=== PATIENT | female | born 1990 | race Caucasian/White ===

== ENCOUNTER 2018-01-01 07:12 | Emergency (ER) | payer OTHER ==
[2018-01-01] MEDS ORDERED: Triamcinolone Acetonide* 40 MG/ML 1 ML VIAL IM ONE (07:46)
--- NOTE | 2018-01-01 07:47 | UC ---
Skin Complaint HPI - HPI Summary HPI Summary: 27 yo female with itchy rash x days greatest density on knees/forearms and abd no noew meds no new soaps or detergents - History of Current Complaint Chief Complaint: UCSkin Time Seen by Provider: 01/01/18 07:23 Stated Complaint: RASH Hx Obtained From: Patient Hx Last Menstrual Period: IUD Onset/Duration: Gradual Onset, Lasting Days Timing: Constant Onset Severity: Mild Current Severity: Mild Pain Intensity: 0 Pain Scale Used: 0-10 Numeric Location: Other - see HPI Character: Pruritus, Redness, Raised Aggravating Factor(s): Touch Alleviating Factor(s): Cold, OTC Meds Associated Signs & Symptoms: Positive: Rash - Allergy/Home Medications Allergies/Adverse Reactions: Allergies Allergy/AdvReac Type Severity Reaction Status Date / Time iodine Allergy Rash Verified 01/01/18 07:30 chloroprep Allergy Rash Uncoded 01/01/18 07:30 Home Medications: Home Medications Hydrocortisone 0.5% CM(NF) [Hydrocortisone 0.5% CREAM(NF)] 1 applic .SEE ORDER DAILY PRN 01/01/18 [History Confirmed 01/01/18] diphenhydrAMINE HCl [Benadryl Allergy 25 MG CAP] 25 mg PO DAILY PRN 01/01/18 [ History Confirmed 01/01/18] Review of Systems Constitutional: Negative Skin: Rash Eyes: Negative ENT: Negative Respiratory: Negative Cardiovascular: Negative Gastrointestinal: Negative Genitourinary: Negative Motor: Negative Neurovascular: Negative Musculoskeletal: Negative Neurological: Negative Psychological: Negative Is Patient Immunocompromised?: No All Other Systems Reviewed And Are Negative: Yes PMH/Surg Hx/FS Hx/Imm Hx Previously Healthy: Yes - Surgical History Surgical History: Yes Surgery Procedure, Year, and Place: laparoscopy - Family History Known Family History: Positive: Hypertension, Diabetes - Social History Alcohol Use: Rare Substance Use Type: None Smoking Status (MU): Never Smoked Tobacco Physical Exam Triage Information Reviewed: Yes Appearance: Well-Appearing, No Pain Distress, Well-Nourished Vital Signs: Initial Vital Signs Temp 98.1 F 01/01/18 07:25 Pulse 92 01/01/18 07:25 Resp 16 01/01/18 07:25 BP 123/78 01/01/18 07:25 Pulse Ox 98 01/01/18 07:25 Vital Signs Reviewed: Yes Eyes: Positive: Conjunctiva Clear ENT: Positive: Hearing grossly normal, Uvula midline. Negative: Nasal congestion, Nasal drainage, Tonsillar swelling, Tonsillar exudate, Trismus, Muffled voice, Hoarse voice Dental Exam: Normal Neck: Positive: Supple, Nontender, No Lymphadenopathy Respiratory: Positive: Lungs clear, Normal breath sounds, No respiratory distress Cardiovascular: Positive: RRR, No Murmur Abdomen Description: Positive: Soft Musculoskeletal: Positive: ROM Intact, No Edema Neurological Exam: Normal Psychological Exam: Normal Skin Exam: Other - fine red papules/many in linear array, no vesicles/scab/ burrows Skin: Positive: rashes Course/Dx - Course Course Of Treatment: given 40MG kenalog IM here. given oral prednisone option which she declines - Diagnoses Provider Diagnoses: contact dermatitis Discharge - Sign-Out/Discharge Documenting (check all that apply): Discharge/Admit/Transfer - Discharge Plan Condition: Stable Disposition: HOME Patient Education Materials: Contact Dermatitis (ED) Referrals: Camryn Teixeira [Primary Care Provider] - 5 Days (if not improved) Additional Instructions: you may take oral benadryl if needed for itching - Billing Disposition and Condition Condition: STABLE Disposition: HOME
== END 2018-01-01 08:20 | disposition home or self-care (01) ==
LOC: UCEAST 07:12
DX: L25.9 Unspecified contact dermatitis, unspecified cause (principal)
CPT/HCPCS: 96372; 99202; G0463; J3301

== ENCOUNTER 2018-03-21 11:13 | Emergency (ER) | payer OTHER ==
[2018-03-21 11:20] VITALS: BP 111/70
--- NOTE | 2018-03-21 11:28 | UC ---
Throat Pain/Nasal Deon HPI - HPI Summary HPI Summary: 27 y/o female presents to the urgent care c/o sinus and chest congestion for the past 3 days. Pt reports nasal discharge is clear associated w/ mild sore throat and b/l ear pressure. Cough is dry. Pain w/ swallowing is 2/10. She has taking Mucinex to alleviate symptoms. Pt denies fever, SOB, wheezing, chest pain , abdominal pain, N/V/D - History of Current Complaint Chief Complaint: UCRespiratory Stated Complaint: SINUS COMPLAINT Time Seen by Provider: 03/21/18 11:26 Hx Obtained From: Patient Hx Last Menstrual Period: pt has an IUD and states not getting a menses ?: No Onset/Duration: Gradual Onset, Lasting Days - 3 days, Still Present, Worse Since - last night Severity: Mild Pain Intensity: 2 - sore throat Pain Scale Used: 0-10 Numeric Cough: Nonproductive Associated Signs & Symptoms: Positive: Dysphagia, Sinus Discomfort, Nasal Discharge Related History: Seasonal Allergies - Epiglottits Risk Factors Epiglottis Risk Factors: Negative - Allergies/Home Medications Allergies/Adverse Reactions: Allergies Allergy/AdvReac Type Severity Reaction Status Date / Time iodine AdvReac Rash Verified 03/21/18 11:20 chloroprep AdvReac Rash Uncoded 03/21/18 11:20 PMH/Surg Hx/FS Hx/Imm Hx Previously Healthy: Yes - Pt denies PMHX - Surgical History Surgical History: Yes Surgery Procedure, Year, and Place: L ureter repair - Family History Known Family History: Positive: Hypertension, Diabetes - Social History Occupation: Employed Full-time Lives: With Family Alcohol Use: Occasionally Substance Use Type: None Smoking Status (MU): Never Smoked Tobacco Review of Systems Constitutional: Negative Skin: Negative Eyes: Negative ENT: Sore Throat, Ear Ache - B/L ear pressure, Nasal Discharge, Sinus Congestion , Sinus Pain/Tenderness Respiratory: Cough - dry Cardiovascular: Negative Gastrointestinal: Negative Genitourinary: Negative Motor: Negative Neurovascular: Negative Musculoskeletal: Negative Neurological: Headache - mild Psychological: Negative Is Patient Immunocompromised?: No All Other Systems Reviewed And Are Negative: Yes Physical Exam - Summary Physical Exam Summary: VITAL SIGNS: Reviewed. GENERAL: Patient is a well developed and nourished female who is sitting comfortable in the examining table. Patient is not in any acute respiratory distress. HEAD AND FACE: No signs of trauma. No ecchymosis, hematomas or skull depressions. No sinus tenderness. EYES: PERRLA, EOMI x 2, No injected conjunctiva, no nystagmus. No photophobia. EARS: Hearing grossly intact. Ear canals and tympanic membranes are within normal limits. Nose: edematous and erythematous nasal mucosa w/ clear nasal discharge. MOUTH: Positive no erythema, no tonsillar enlargement. Uvula in midline. NECK: Supple, trachea is midline, Positive anterior cervical lymphadenopathy, no JVD, no carotid bruit, no c-spine tenderness, neck with full ROM. No meningeal signs, no Kernig's or brudzinskis signs. CHEST: Symmetric, no tenderness at palpation LUNGS: Clear to auscultation bilaterally. No wheezing or crackles. CVS: Regular rate and rhythm, S1 and S2 present, no murmurs or gallops appreciated. ABDOMEN: Soft, non-tender. No signs of distention. No rebound no guarding, and no masses palpated. Bowel sounds are normal. EXTREMITIES: FROM in all major joints, no edema, no cyanosis or clubbing. NEURO: Alert and oriented x 3. No acute neurological deficits. Speech is normal and follows commands. Triage Information Reviewed: Yes Vital Signs: Initial Vital Signs Temp 98.2 F 03/21/18 11:17 Pulse 66 03/21/18 11:17 Resp 16 03/21/18 11:17 BP 111/70 03/21/18 11:17 Pulse Ox 100 03/21/18 11:17 Throat Pain/Nasal Course/Dx - Course Course Of Treatment: 27 y/o female presents to the urgent care c/o sinus and chest congestion for the past 3 days. Pt reports nasal discharge is clear associated w/ mild sore throat and b/l ear pressure. Cough is dry. Pain w/ swallowing is 2/10. She has taking Mucinex to alleviate symptoms. Pt denies fever, SOB, wheezing, chest pain, abdominal pain, N/V/D. Hx obtained. Pt w/ an upper respirtory infection on examination. Pt advised to rest, increase fluid intake. Pt Rx Flonase nasal spray and Loratadine PO to clear sinus congestion. Also to continue w/ Mucinex PO. Pt advised if not improvement of symptoms to return to the urgent care or f/u w/ her PCP for further management. Pt understood and agreed w/ plan of care. - Differential Dx/Diagnosis Differential Diagnosis/HQI/PQRI: Laryngitis, Mononucleosis, Otitis Media, Pharyngitis, Sinusitis, Tonsillitis, URI Provider Diagnoses: 1- Upper respiratory infection Discharge - Sign-Out/Discharge Documenting (check all that apply): Patient Departure - d/c home - Discharge Plan Condition: Stable Disposition: HOME Prescriptions: Fluticasone NASAL SPRAY 50MCG* [Flonase NASAL SPRAY 50MCG*] 2 spray BOTH NARES DAILY #1 btl Loratadine/Pseudoephedrine [Loratadine-D 12 Hour Tablet] 1 each PO BID #20 [id number] Patient Education Materials: Upper Respiratory Infection (ED) Forms: *Work Release Referrals: Camryn Teixeira [Primary Care Provider] - 3 Days Additional Instructions: 1- Please increase fluid intake, eat well and rest. 2-Use Flonase as directed to help drain fluid. Take Loratadine PO as directed to alleviate symptoms 3-Take Ibuprofen or Acetaminophen for fever and pain. 4-Return to the clinic or call your PCP if symptoms do not improve. - Billing Disposition and Condition Condition: STABLE Disposition: Home
== END 2018-03-21 11:45 | disposition home or self-care (01) ==
LOC: UCEAST 11:13
DX: J06.9 Acute upper respiratory infection, unspecified (principal); Z82.49 Family history of ischemic heart disease and other diseases of the circulatory system; Z83.3 Family history of diabetes mellitus
CPT/HCPCS: 99212; G0463

== ENCOUNTER 2018-04-11 10:37 | Emergency (ER) | payer MEDICAID, OTHER ==
[2018-04-11 10:50] VITALS: BP 119/82
--- NOTE | 2018-04-11 11:21 | UC ---
Lower Extremity/Ankle HPI - HPI Summary HPI Summary: This pt is a 27 y/o female presenting to [facility] c/o right ankle pain since . Pt denies fall or trauma to right ankle. She states she first noticed pain after work 3 days ago when she tried to put on her shoes to go out for dinner. Denies fever, chills, redness, knee pain. Her pain is aggravated with bearing weight and putting toes down. She has not taken any pain medications. Pt sustained a bug bite last week on right ankle before these sx started. Denies redness from bug bite. not immunocompromised. Pt does not take any medications on a daily basis. Patients medication reviewed this visit. - History of Current Complaint Chief Complaint: UCLowerExtremity Stated Complaint: ANKLE PAIN Time Seen by Provider: 04/11/18 11:19 Hx Obtained From: Patient Hx Last Menstrual Period: 2 years ago Onset/Duration: Lasting Days, Still Present Severity Currently: Moderate Pain Intensity: 8 Pain Scale Used: 0-10 Numeric Aggravating Factor(s): Other - weight bearing, putting toes down Alleviating Factor(s): Nothing Able to Bear Weight: Yes - but painful - Allergies/Home Medications Allergies/Adverse Reactions: Allergies Allergy/AdvReac Type Severity Reaction Status Date / Time iodine AdvReac Rash Verified 04/11/18 10:51 chloroprep AdvReac Rash Uncoded 04/11/18 10:51 PMH/Surg Hx/FS Hx/Imm Hx Previously Healthy: Yes Other Endocrine History: DENIES: diabetes Other Cardiovascular History: DENIES: HTN - Surgical History Surgical History: Yes Surgery Procedure, Year, and Place: L Ureter repair - Family History Known Family History: Positive: Hypertension, Diabetes - Social History Occupation: Employed Full-time Alcohol Use: Occasionally Substance Use Type: None Smoking Status (MU): Never Smoked Tobacco Review of Systems Constitutional: Negative Skin: Other - right ankle bugbite Eyes: Negative ENT: Negative Respiratory: Negative Cardiovascular: Negative Gastrointestinal: Negative Genitourinary: Negative Motor: Negative Neurovascular: Negative Musculoskeletal: Other: - POS: right ankle pain Neurological: Negative Psychological: Negative Is Patient Immunocompromised?: No All Other Systems Reviewed And Are Negative: Yes Physical Exam - Summary Physical Exam Summary: Vital Signs Reviewed: Yes A+Ox3, no distress Eyes: Conjunctiva Clear ENT: Hearing grossly normal neck: supple Respiratory: Positive: No respiratory distress, No accessory muscle use Cardiovascular: skin color reflect adequate perfusion 2+ DP, PT b/l Musculoskeletal Exam: + SLE b/l + flex/ext knee, ankle b/l + TTP inferior posterior aspect right lateral malleoulus. mild discomfort along achilles No crepitus no erythema + Edema no ecchymosis Neurological: Positive: Alert, ambulatory without difficulty Psychological: Positive: Normal Response To Family Skin: Positive: pt with small, scabbed lesion right lateral malleolus no warmth , drainage notable edema inferior, posterior aspect right lateral malleolus no crepitus Triage Information Reviewed: Yes Vital Signs: Initial Vital Signs Temp 98.7 F 04/11/18 10:47 Pulse 74 04/11/18 10:47 Resp 12 04/11/18 10:47 BP 119/82 04/11/18 10:47 Pulse Ox 99 04/11/18 10:47 Diagnostics - Radiology Right ankle XR Xray Interpretation: No Acute Changes - IMPRESSION: Unremarkable right ankle. Dr. Rojas has reviewed this radiology report. Radiology Interpretation Completed By: Radiologist Lower Extremity Course/Dx - Course Course Of Treatment: Pt declines pain medications and crutches. Pt with non- traumatic development of focal edema and pain posterior, inferior aspect right malleolus sx started following a bugbite to right malleolus no erythema. d/w pt at length - concern for local inflammatory response or sue yinfection related to bite vs bursitis. recommend crutches - declines. ice. elevate. motrin/apap. sports medicine. pt comfortable wiht plan - Differential Dx/Diagnosis Provider Diagnoses: right ankle pain Discharge - Sign-Out/Discharge Documenting (check all that apply): Patient Departure - discharge All imaging exams completed and their final reports reviewed: Yes - Discharge Plan Condition: Stable Disposition: HOME Prescriptions: Amoxicillin PO (*) [Amoxicillin 500 MG CAP*] 500 mg PO Q12H #14 cap Patient Education Materials: Ankle Bursitis (ED) Referrals: Camryn Teixeira [Primary Care Provider] - [facility] [Provider Group] Additional Instructions: - wear malinda wrap for comfort and support - apply ice (20 min at a time) every 2-3 hours for the next 2 days - elevate your leg - this will help with swelling and pain - Alternate ibuprofen (advil, Motrin) 600mg and tylenol every 3 hours for pain. Take with food. Do NOT take for more than 4-5 days - take antibiotics as prescribed until gone -Contact the sports management group tomorrow to arrange a follow-up appointment this week. Contact your doctor or return with questions or concerns - Billing Disposition and Condition Condition: STABLE Disposition: Home - Attestation Statements Document Initiated by Tabby: Yes Documenting Scribe: Monica Smith Provider For Whom Sunnyibe is Documenting (Include Credential): Kadi Rojas MD Scribe Attestation: Monica Padilla, scribed for Kadi Rojas MD on 04/11/18 at 1155. Scribe Documentation Reviewed: Yes Provider Attestation: The documentation as recorded by the Monica stanford accurately reflects the service I personally performed and the decisions made by , Kadi Rojas MD
--- NOTE | 2018-04-11 11:37 | RAD ---
Indication: Right ankle pain. 3 views of the right ankle demonstrates ankle mortise is intact. No fracture is noted. IMPRESSION: Unremarkable right ankle.
== END 2018-04-11 11:57 | disposition home or self-care (01) ==
LOC: UCEAST 10:37
DX: M25.571 Pain in right ankle and joints of right foot (principal)
CPT/HCPCS: 99212; G0463